=== PATIENT | male | born 1945 | race Caucasian/White ===

== ENCOUNTER 2021-04-03 17:15 | Inpatient (IN) | payer OTHER ==
[~2021-04-03] VITALS: Ht 182.9 cm; Wt 103.4 kg
[2021-04-03 17:23] VITALS: BP 109/68; BP 112/83
[2021-04-03 18:01] LABS: ABSOLUTE NEUTROPHILS 2.6 thou/uL (1.4-8.2); BASOPHILS 0.7 % (0.0-2.0); EOSINOPHILS 1.2 % (0.0-3.0); HEMATOCRIT 41.9 % (42.0-52.0); HEMOGLOBIN 14.5 gm/dL (14.0-18.0); LYMPHOCYTES 33.5 % (24.0-44.0); MCH 34.5 pg (26.0-34.0); MCHC 34.7 g/dL (28.0-37.0); MCV 99.6 fL (80.0-100.0); MONOCYTES 14.5 % (1.0-8.0); PLATELET COUNT 121 thou/uL (150-400); POLYS 50.1 % (36.0-66.0); RBC 4.21 mil/uL (4.50-6.00); RDW 14.7 % (10.5-14.5); WBC 5.2 thou/uL (4.0-11.0)
[2021-04-03 18:08] LABS: CALCIUM 9.1 mg/dL (8.5-10.1); CREATININE 1.5 mg/dL (0.7-1.3); POTASSIUM 4.3 mmol/L (3.5-5.1)
[2021-04-03 18:18] LABS: ALBUMIN 3.7 g/dL (3.4-5.0); TOTAL BILIRUBIN 0.6 mg/dL (0.2-1.0); TOTAL PROTEIN 7.1 g/dL (6.4-8.2); TROPONIN-I 0.07 ng/mL (<0.06)
--- NOTE | 2021-04-03 19:10 | NUR ---
REPORT GIVEN TO YANELIS EAGN AT THIS TIME
[2021-04-03 20:07] LABS: INR 2.86; PROTIME 29.7 Seconds (10.5-12.1)
[2021-04-03 23:05] VITALS: BP 210/121
[2021-04-04] VITALS: BP 179/100
[2021-04-04 00:05] VITALS: BP 162/70
[2021-04-04 02:50] LABS: CALCIUM 9.2 mg/dL (8.5-10.1); CREATININE 1.4 mg/dL (0.7-1.3); POTASSIUM 3.6 mmol/L (3.5-5.1)
[2021-04-04 02:55] LABS: INR 2.81; PROTIME 29.2 Seconds (10.5-12.1)
[2021-04-04 04:46] VITALS: BP 187/127
--- NOTE | 2021-04-04 07:16 | EKG ---
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: : 1945 Requested By: Kevin Quinteros Order Number: [id number] MD: Angel Xiong Measurements Intervals [place] Rate: 72 P: SC: QRS: 32 QRSD: 122 T: 73 QT: 416 QTc: 456 Interpretive Statements Atrial fibrillation Nonspecific intraventricular conduction delay Borderline T abnormalities, lateral leads Baseline wander in lead(s) V6 No previous ECG available for comparison Electronically Signed On 04-04-2021 7:16:03 CDT by Angel Xiong [email or web address] <ELECTRONICALLY SIGNED> By: Angel Xiong MD, [facility] 04/04/21 0716 21 21 Angel Xiong MD, FACC /EPI
[2021-04-04 07:26] VITALS: BP 164/93
--- NOTE | 2021-04-04 09:35 | 2DMMODE ---
[facility] [place] [address] 2 D/M-MODE ECHOCARDIOGRAM Name: AKBAR HOANG Room #: 364-P ADM IN M.R.#: [id number] Admission: 04/03/21 Attend Phys: Javier Serrano MD Discharge: Date of : 43 Report #: [id number] REPORT FOR: cc: Johan Nayak David MD Park, Jin S. MD ~ APPROVED REPORT Study performed: 04/04/2021 07:34:32 EXAM: Comprehensive 2D, Doppler, and color-flow Echocardiogram Patient Location: Bedside Room #: 364 Status: routine BSA: 2.40 HR: 77 bpm BP: 179/100 mmHg Rhythm: Atrial Fibrillation Other Information Study Quality: Adequate Indications New onset Afib. Hx: CVAs, HTN. 2D Dimensions RVDd: 37.00 mm IVSd: 13.00 (7-11mm) LVOT Diam: 21.00 (18-24mm) LVDd: 50.00 mm PWd: 14.00 (7-11mm) Ascending Ao: 45.00 (22-36mm) LVDs: 33.00 (25-40mm) Left Atrium: 34.00 (27-40mm) Aortic Root: 36.00 mm Volumes Left Atrial Volume (Systole) Single Plane 4CH: 45.54 mL Single Plane 2CH: 72.61 mL LA ESV Index: 25.00 mL/m2 Aortic Valve AoV Peak Dano.: 1.87 m/s AO Peak Gr.: 14.11 mmHg LVOT Max P.96 mmHg AO Mean Gr.: 7.81 mmHg [facility] [address] [place] [address] 2 D/M-MODE ECHOCARDIOGRAM Name: AKBAR HOANG Room #: 364-P [facility] IN .R.#: [id number] Admission: 04/03/21 Attend Phys: Javier Serrano, Discharge: Date of : 43 Report #: [id number] AO V2 Mean: 1.33 m/s LVOT Max V: 0.86 m/s AO V2 VTI: 40.43 cm GERTRUDE Vmax: 1.57 cm2 Mitral Valve MV Decel. Time: 182.44 ms MV E Max Dano.: 0.94 m/s Pulmonary Valve PV Peak Dano.: 0.86 m/s PV Peak Gr.: 2.94 mmHg Tricuspid Valve TR Peak Dano.: 2.40 m/s RAP Estimate: 5.00 mmHg TR Peak Gr.: 23.00 mmHg PA Pressure: 28.00 mmHg Left Ventricle The left ventricle is normal size. There is normal LV segmental wall motion. Mild concentric left ventricular hypertrophy. Left ventricular systolic function is normal. LVEF is 60%. This study is not technically sufficient to allow evaluation of the LV diastolic function due to atrial fibrillation. Right Ventricle The right ventricle is normal size. The right ventricular systolic function is normal. Atria The left atrium size is normal. The right atrium size is normal. Aortic Valve The aortic valve is normal in structure; thickened and calcified. Mild to moderate aortic regurgitation. There is mild valvular aortic stenosis. Calculated aortic valve area is 1.6 cm2 with maximum pressure gradient of 18 mmHg and mean pressure gradient of 9 mmHg. Mitral Valve The mitral valve is normal in structure. Mild mitral annular calcification. Mild mitral regurgitation. No evidence of mitral valve stenosis. Tricuspid Valve The tricuspid valve is normal in structure. Mild tricuspid regurgitation. Estimated PAP is 28mmHg. [facility] [address] [place] [address] 2 D/M-MODE ECHOCARDIOGRAM Name: AKBAR HOANG Room #: 364-P ADM IN .R.#: [id number] Admission: 04/03/21 Attend Phys: Javier Serrano, Discharge: Date of : 43 Report #: [id number] Pulmonic Valve The pulmonary valve is normal in structure. Trace pulmonic regurgitation. Great Vessels The aortic root is normal in size. 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 IVC is normal in size and collapses >50% with inspiration. Pericardium There is no pericardial effusion. <Conclusion> The left ventricle is normal size. Mild concentric left ventricular hypertrophy. Left ventricular systolic function is normal. The right ventricle is normal size. The left atrium size is normal. There is mild valvular aortic stenosis. Mild to moderate aortic regurgitation. Mild mitral regurgitation. Mild tricuspid regurgitation. Estimated PAP is 28mmHg. <ELECTRONICALLY SIGNED> By: Slim Hays MD 04/04/21933 3 3 Slim Hays MD /INF
--- NOTE | 2021-04-04 13:06 | EKG ---
[address] [address] ELECTROCARDIOGRAM REPORT Name: AKBAR HOANG Room #: 364-P ADM IN M.R.#: [id number] Admission: 04/03/21 Attend Phys: Javier Serrano MD Discharge: Date of : 43 Report #: [id number] [facility] ED Test Date: 2021-04-03 Test Time: 20:30:04 Pat Name: AKBAR HOANG Department: Room: 364 P Gender: M Executive Pilot: : 1945 Requested By: Javier Serrano Order Number: [id number] MD: Angel Xiong Measurements Intervals [place] Rate: 69 P: VT: QRS: 11 QRSD: 111 T: 31 QT: 410 QTc: 440 Interpretive Statements Atrial fibrillation Incomplete left bundle branch block Baseline wander in lead(s) V2,V3 Compared to ECG 04/03/2021 17:22:38 Left bundle-branch block now present Intraventricular conduction delay no longer present T-wave abnormality no longer present Electronically Signed On 04-04-2021 13:06:43 CDT by Angel Xiong [email or web address] <ELECTRONICALLY SIGNED> By: Angel Xiong MD, [facility] 04/04/21 1306 2030 29 Angel Xiong MD, [facility] /EPI
[2021-04-04 15:14] VITALS: BP 167/71
--- NOTE | 2021-04-04 16:20 | NUR ---
INITIAL ASSESSMENT: SW reviewed chart and spoke with attending physician. Pt was transferred to [facility] from [facility] due to A-Fib. Cardiology consulted. Pt had negative COVID test on 04/03. Pt has received the [employer] COVID vaccine. SW placed all to pt's room. No answer. Per chart, pt is alert/orientated. Pt lives at home with his . Pt with hx of CVA and has right-sided weakness. Pt and live in a one level home. No stairs to navigate. Pt uses a walker. Pt's PCP is listed as Dr. Johan Nayak. SW will continue to follow up with pt and assist as needed with discharge planning.
--- NOTE | 2021-04-04 18:30 | NUR ---
RN ASSUMED PT'S CARE AT 0700AM, PT IS A&OX4, PT 'S HR AND BP HAVE IMPROVED , PT'S VS ARE STABLE, BUT PT NEEDS HELP TO BATH ROOM DUE TO L SIDE WEAKNESS. PT DENIES PAIN AND SOB AT DAY SHIFT.
--- NOTE | 2021-04-04 18:34 | NUR ---
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
[2021-04-04 20:08] VITALS: BP 150/80
[2021-04-05 02:47] LABS: INR 2.49
[2021-04-05 07:38] VITALS: BP 175/97
--- NOTE | 2021-04-05 08:02 | NUR ---
progress pt a/o x4 up with sba and walker, attempts to get up independently not that he's confused just feels he is independent at home and should be here. wants to dc home and wants to shower today. vss tele intact reading sr/alternating afib rates in the 80's no sob or discomfort noted continue poc.
[2021-04-05] MEDS ORDERED: CARVEDILOL25 MG PO (09:29)
[2021-04-05] MEDS ORDERED: AMLODIPINE BESY10 MG PO (10:04)
[2021-04-05] MEDS ORDERED: JANTOVEN2 MG PO (10:04)
[2021-04-05] MEDS ORDERED: MECLIZINE HCL25 MG PO (10:05)
[2021-04-05] MEDS ORDERED: KEPPRA1000 MG PO (10:05)
[2021-04-05] MEDS ORDERED: MIRAPEX 0.250.25 M1 PO (10:05)
[2021-04-05 10:58] VITALS: BP 175/97
--- NOTE | 2021-04-05 11:53 | NUR ---
assumed care of pt at 0700. pt aox4 no acute distress. wanting to go home. showered without difficulty. hypertension addressed by geometrician - coreg dose increased. ok for discharge per physician. wheelchaired out to 's car. all questions and concerns regarding discharge information addressed with patient.
--- NOTE | 2021-04-05 12:22 | NUR ---
DISCHARGE NOTE: SW reviewed chart and spoke with nursing and attending physician. Pt is medically stable for discharge home today. SW placed call to pt's room. No answer. No SW discharge needs identified at this time. Pt's family provided transportation home. SW is available to assist should needs arise.
== END 2021-04-05 11:50 | disposition home or self-care (01) | DRG 309 ==
LOC: ER 17:15 → 3W 20:37 → EROBS 20:37 → 3W 23:50
PROVIDERS: Nurse Practitioner Family; Student in an Organized Health Care Education/Training Program; ADMIT Internal Medicine; ATTEND Internal Medicine
DX: I48.91 Unspecified atrial fibrillation (principal); N17.9 Acute kidney failure, unspecified; I69.351 Hemiplegia and hemiparesis following cerebral infarction affecting right dominant side; Z20.822 Contact with and (suspected) exposure to COVID-19; G40.909 Epilepsy, unspecified, not intractable, without status epilepticus; G25.81 Restless legs syndrome; M10.9 Gout, unspecified; R74.01 Elevation of levels of liver transaminase levels; D69.6 Thrombocytopenia, unspecified; I12.9 Hypertensive chronic kidney disease with stage 1 through stage 4 chronic kidney disease, or unspecified chronic kidney disease; N18.9 Chronic kidney disease, unspecified; Z87.820 Personal history of traumatic brain injury; Z88.0 Allergy status to penicillin; Z88.2 Allergy status to sulfonamides; Z87.891 Personal history of nicotine dependence; Z85.46 Personal history of malignant neoplasm of prostate
CPT/HCPCS: 10879

== ENCOUNTER → 2021-04-15 | Outpatient (CLI) | payer OTHER ==
[~2021-04-15] MED LIST: AMLODIPINE BESY10 MG PO; CARVEDILOL25 MG PO; JANTOVEN2 MG PO; KEPPRA1000 MG PO; MECLIZINE HCL25 MG PO; MIRAPEX 0.250.25 M1 PO
== END ==
LOC: SJCVCIMAG 10:08 → SJCVC 10:08 → SJCVCIMAG 11:37
PROVIDERS: ATTEND Internal Medicine Cardiovascular Disease
DX: I48.91 Unspecified atrial fibrillation (principal); R07.89 Other chest pain; R06.00 Dyspnea, unspecified; I10 Essential (primary) hypertension; R42 Dizziness and giddiness; M10.9 Gout, unspecified; Z88.0 Allergy status to penicillin; Z88.2 Allergy status to sulfonamides; Z79.01 Long term (current) use of anticoagulants; Z79.899 Other long term (current) drug therapy; Z86.718 Personal history of other venous thrombosis and embolism; Z86.73 Personal history of transient ischemic attack (TIA), and cerebral infarction without residual deficits; Z87.891 Personal history of nicotine dependence; Z82.49 Family history of ischemic heart disease and other diseases of the circulatory system